=== PATIENT | male | born 1940 | race Caucasian/White ===

== ENCOUNTER 2016-06-20 14:28 | Inpatient (IN) | payer MEDICARE, BC ==
[~2016-06-20] VITALS: Ht 190.5 cm; Wt 92.3 kg
[~2016-06-20 14:28] MED LIST: BETAPACE 120MG120 MG PO; BETAPACE160 MG PO; CARDURA 1MG1 MG PO; ELIQUIS 5MG PO; FLONASEALLERGY NS; TOPROL XL 25MG25 MG PO; TYLENOL 500MG500 MG PO
[2016-06-20 15:01] VITALS: BP 151/82; PULSE 83; TEMP 98.3
[2016-06-20 17:57] VITALS: BP 165/75; PULSE 88; TEMP 97.8
[2016-06-20 18:00] VITALS: BP 168/80
[2016-06-20] MEDS ORDERED: NORVASC 5MG5 MG/TAB PO (18:48)
[2016-06-20] MEDS ORDERED: CORDARONE200 MG/TAB PO (18:48)
[2016-06-20 22:58] VITALS: BP 155/80; PULSE 84; TEMP 97.8
[2016-06-21] VITALS (7 sets, daily range): BP systolic 133–186; BP diastolic 67–92; PULSE 78–96; TEMP 97–98.4
[2016-06-22 01:26] VITALS: BP 145/78; PULSE 69; TEMP 96.9
[2016-06-22 05:33] VITALS: BP 151/86; PULSE 71; TEMP 97
== END 2016-06-22 12:54 | disposition home or self-care (01) | DRG 156 ==
LOC: MEDICAL 14:28 → SPACE 14:39 → SURG 14:46
DX: J38.02 Paralysis of vocal cords and larynx, bilateral (principal); R13.10 Dysphagia, unspecified
CPT/HCPCS: J0295; J1100; J7120

== ENCOUNTER 2016-06-25 13:44 | Inpatient (IN) | payer MEDICARE, BC ==
[~2016-06-25] VITALS: Ht 190.5 cm; Wt 90.5 kg
[~2016-06-25 13:44] MED LIST changes: +CORDARONE200 MG/TAB PO; +NORVASC 5MG5 MG/TAB PO
[2016-06-25 14:00] VITALS: BP 189/89; PULSE 86; TEMP 98.2
[2016-06-25 14:36] VITALS: BP 189/89; PULSE 86; TEMP 98.2
[2016-06-25] MEDS ORDERED: COZAAR 25MG25 MG/TAB PO (15:01)
[2016-06-25 17:24] VITALS: BP 190/97; PULSE 91; TEMP 98.2
[2016-06-25 21:34] VITALS: BP 160/87; PULSE 91; TEMP 98.2
[2016-06-26 02:41] VITALS: BP 126/77; PULSE 90; TEMP 98.5
[2016-06-26 04:50] VITALS: BP 138/80; PULSE 92; TEMP 98.5
[2016-06-26 09:36] VITALS: BP 164/83; PULSE 85; TEMP 97.7
[2016-06-26 13:58] VITALS: BP 151/80; PULSE 82; TEMP 98.7
[2016-06-26 18:08] VITALS: BP 172/91; PULSE 91; TEMP 97.6
[2016-06-26 21:01] VITALS: BP 152/84; PULSE 87; TEMP 97.2
[2016-06-27 02:34] VITALS: BP 128/72; PULSE 86; TEMP 97.2
[2016-06-27 04:46] VITALS: BP 126/75; PULSE 83; TEMP 98.3
[2016-06-27 09:49] VITALS: BP 160/76; PULSE 87; TEMP 96.9
== END 2016-06-27 15:05 | disposition home or self-care (01) | DRG 155 ==
LOC: SURG 13:44
DX: J38.02 Paralysis of vocal cords and larynx, bilateral (principal); B37.0 Candidal stomatitis; I10 Essential (primary) hypertension; I48.91 Unspecified atrial fibrillation; G14 Postpolio syndrome; T40.605A Adverse effect of unspecified narcotics, initial encounter
CPT/HCPCS: J7120

== ENCOUNTER 2017-04-30 14:42 | Emergency (ER) | payer MEDICARE, BC ==
[~2017-04-30] VITALS: Ht 190.5 cm; Wt 94.0 kg
[~2017-04-30 14:42] MED LIST changes: +COZAAR 25MG25 MG/TAB PO
[2017-04-30 14:47] VITALS: TEMP 98
[2017-04-30] MEDS ORDERED: HCTZ 25MG TAB25 MG PO (15:03)
[2017-04-30 15:55] LABS: BASO % 0.4 % (0.0-2.0); EOS # 0.1 (0.0-0.7); EOS % 1.3 % (0-4.0); GRAN # 6.1 (1.4-6.5); GRAN % 66.4 % (42.2-75.2); HEMATOCRIT 43.9 % (42.0-52.0); HEMOGLOBIN 14.8 g/dl (13.5-18.0); LYMPH # 2.1 (1.2-3.4); LYMPH % 23.2 % (20.0-51.0); MEAN CELL VOLUME 87 fl (80.0-100.0); MEAN CORPUSCULAR HEMOGLOBIN 29 pg (27.0-31.0); MEAN CORPUSCULAR HGB CONC 34 g/dl (33.0-37.0); MEAN PLATELET VOLUME 9.8 fl (7.4-10.4); MONO # 0.8 (0.1-0.6); MONO % 8.5 % (1.7-9.3); PLATELET COUNT 266 K/mm3 (130-400); RED BLOOD COUNT 5.04 M/mm3 (4.20-5.60); WHITE BLOOD COUNT 9.1 K/mm3 (4.8-10.8)
[2017-04-30] MEDS ORDERED: TOVIAZ4 MG PO (15:58)
[2017-04-30 16:12] LABS: ADJUSTED CALCIUM 10.3 mg/dL (8.4-10.2); ALANINE AMINOTRANSFERASE 26 U/L (21-72); ALBUMIN 3.6 gm/dL (3.5-5.0); ALKALINE PHOSPHATASE 54 U/L (50-136); ANION GAP 8 mmol/L (7-16); BILIRUBIN,TOTAL 0.3 mg/dL (0.0-1.0); BLOOD UREA NITROGEN 17 mg/dL (9-20); CARBON DIOXIDE 29 mmol/L (22-30); CHLORIDE 100 mmol/L (98-107); CREATININE, serum 0.92 mg/dL (0.66-1.25); GLUCOSE 96 mg/dL (74-106); POTASSIUM 3.8 mmol/L (3.4-5.0); SODIUM 137 mmol/L (137-145); TOTAL PROTEIN 6.2 gm/dL (6.4-8.2)
[2017-04-30 16:19] LABS: C-REACTIVE PROTEIN < 0.5 mg/dL (0.0-0.9)
[2017-04-30 16:23] LABS: TROPONIN-I < 0.012 ng/mL (0.000-0.034)
[2017-04-30] MEDS ORDERED: NORVASC 5MG5 MG/TAB PO (17:49)
[2017-04-30 17:57] VITALS: BP 160/96; PULSE 72
== END 2017-04-30 17:58 | disposition home or self-care (01) ==
LOC: COL.ER 14:42
PROVIDERS: Emergency Medicine
DX: I10 Essential (primary) hypertension (principal); I48.91 Unspecified atrial fibrillation

== ENCOUNTER → 2018-02-11 | Outpatient (CLI) | payer MEDICARE, BC ==
[~2018-02-11] MED LIST changes: +HCTZ 25MG TAB25 MG PO; +TOVIAZ4 MG PO
== END ==
LOC: COL.RAD 11:00
DX: N28.1 Cyst of kidney, acquired (principal); Z90.49 Acquired absence of other specified parts of digestive tract
CPT/HCPCS: Q9967

== ENCOUNTER 2021-11-12 08:24 | Emergency (ER) | payer MEDICARE, BC ==
[~2021-11-12] VITALS: Ht 190.5 cm; Wt 95.0 kg
[2021-11-12 08:30] VITALS: BP 159/74; TEMP 97.3
[2021-11-12] MEDS ORDERED: ROBAXIN 75750 MG/TAB PO (09:00)
[2021-11-12] MEDS ORDERED: LIDODERM 5% PATC1 EA TP (09:00)
[2021-11-12 09:10] VITALS: PULSE 75
== END 2021-11-12 09:10 | disposition home or self-care (01) ==
LOC: COL.ER 08:24
DX: M62.830 Muscle spasm of back (principal); Z87.891 Personal history of nicotine dependence; Z79.01 Long term (current) use of anticoagulants

== ENCOUNTER 2023-03-31 09:54 | Day surgery (SDC) | payer MEDICARE, BC ==
[2023-03-31] VITALS (13 sets, daily range): BP systolic 123–148; BP diastolic 61–90; PULSE 59–100; TEMP 97.8
[~2023-03-31] VITALS: Ht 188 cm; Wt 95.2 kg
[~2023-03-31 09:54] MED LIST changes: +ALTACE 5MG5 MG PO; +ASPIRIN 32325 MG/TAB PO; +LIDODERM 5% PATC1 EA TP; +ROBAXIN 75750 MG/TAB PO; +ZIAC 2.5/6.25MG1 TAB
[2023-03-31 10:30] LABS: HEMATOCRIT 38.2 % (42.0-52.0); MEAN CELL VOLUME 80 fl (80.0-100.0); MEAN CORPUSCULAR HEMOGLOBIN 25 pg (27-31); MEAN CORPUSCULAR HGB CONC 31 g/dl (33.0-37.0); MEAN PLATELET VOLUME 9.6 fl (7.4-10.4); PLATELET COUNT 335 K/mm3 (130-400); REDCELL DISTRIBUTION WIDTH-CV 13.9 % (11.5-14.5)
[2023-03-31] MEDS ORDERED: ELIQUIS 5MG PO (10:43)
[2023-03-31 10:46] LABS: CALCIUM 9.6 mg/dL (8.4-10.2); CREATININE, serum 0.78 mg/dL (0.72-1.25); POTASSIUM 4.4 mmol/L (3.5-4.5)
[2023-03-31] MEDS ORDERED: TYLENOL 500MG500 MG PO (10:47)
[2023-03-31 10:48] LABS: INR 1.3 (0.8-3.0); PROTHROMBIN TIME 14.1 SECONDS (9.7-12.8)
[2023-03-31] MEDS ORDERED: BIOFREEZE 0.2%-1 GE1 TOP (10:48)
[2023-03-31] MEDS ORDERED: BLUE-EMU LIDOC1 EACH TP (10:48)
[2023-03-31 10:50] LABS: PARTIAL THROMBOPLASTIN TIME 30.9 SECONDS (26.0-37.0)
--- NOTE | 2023-03-31 10:56 | NUR ---
Initial visit; Patient and his thanked Car Rental Deliverer for offering prayer for Prem prior to his 'Heart Catherization.' Car Rental Deliverer states that it is always her blessing also to pray with patients and their families.
--- NOTE | 2023-03-31 12:51 | NUR ---
Refer to [facility] Report for procedural sedation and notes
--- NOTE | 2023-03-31 16:15 | NUR ---
Pt reports having tenderness on right forearm. coreroom foundry laborer staff called to check on pt. No bruising noticed, but pt still reporting tenderness. Akila De La Torre nurse aware. Orders to firmly karen wrap forearm, apply ice and give 650 of tylenol given. Pts forearm has been firmly wrapped with an karen wrap and ice applied. Currently waiting for tylenol order. 8 mls of air has been released from the radial band, no bleeding from site present.
--- NOTE | 2023-03-31 16:46 | NUR ---
Right forearm still wrapped firmly with an Julio wrap, ice in place, tylenol has been given. Pt still reports tenderness.
--- NOTE | 2023-03-31 17:15 | NUR ---
Right forearm still wrapped with a karen wrap, ice still in place. Pt reports that tenderness is better and does not hurt as much.
--- NOTE | 2023-03-31 18:01 | NUR ---
Pts forearm still wrapped with an RADHA wrap. Pt removed Ice. Pt reported that he no longer has tenderness in his forearm.
--- NOTE | 2023-03-31 19:15 | NUR ---
Pt ambulated to EU9 accompanied by . Pt is scheduled for a [facility]. IV started, labs drawn. EKG done. Meds and HX were reviewed with the pt. Consent for the LHC signed. Pt was taken to car barn laborer for LHC. Came back to EU9 post procedure. Pt was given something to drink and ordered food. Pt was bedrest for 2 hrs. At the start of hr 3 air was released from the radial band. Site clean, dry, and intact. Pt reported tenderness to right forearm. slabbing machine operator notified, car barn laborer staff came to assess the forearm. No bruising, no heat, only tenderness. Dr. rosana Wilburn nurse notified. Orders for a firmly wrapped karen wrap, ice pack, and tylenol given. Pt later reported after karen wrap and ice were applied and tylenol given that the tenderness was better. 2 mls of air were then released about every 15 minutes. Once all air was released no bleeding occured. A band-aid was applied and the deflated radial band was reapplied as a remind to limit extremity use. Discharge education and information given to the pt. Pt exited the unit by wheelchair to wifes car.
== END 2023-03-31 18:45 | disposition home or self-care (01) ==
LOC: COL.CAR 09:54
PROVIDERS: Internal Medicine Cardiovascular Disease
DX: R94.39 Abnormal result of other cardiovascular function study (principal); I48.0 Paroxysmal atrial fibrillation; I44.1 Atrioventricular block, second degree; I10 Essential (primary) hypertension; E78.00 Pure hypercholesterolemia, unspecified; I49.5 Sick sinus syndrome; E78.2 Mixed hyperlipidemia; Z87.891 Personal history of nicotine dependence
CPT/HCPCS: J1644; J2250; J3010; Q9967

== ENCOUNTER 2024-02-19 10:04 | Inpatient (IN) | payer MEDICARE, BC ==
[2024-02-19] VITALS (7 sets, daily range): BP systolic 142–182; BP diastolic 64–97; PULSE 85–103; TEMP 97.6–98
[~2024-02-19] VITALS: Ht 188 cm; Wt 93.1 kg
[~2024-02-19 10:04] MED LIST changes: +BIOFREEZE 0.2%-1 GE1 TOP; +BLUE-EMU LIDOC1 EACH TP
[2024-02-19] MEDS ORDERED: dexAMETHasone 10 MG/ML VIAL IV ONE (10:45)
[2024-02-19] MEDS ORDERED: NS 1,000 ML IV ONE ×2 (10:45)
[2024-02-19 10:56] LABS: HEMATOCRIT 41.6 % (42.0-52.0); HEMOGLOBIN 13.7 g/dl (13.5-18.0); MEAN CELL VOLUME 82 fl (80.0-100.0); MEAN CORPUSCULAR HEMOGLOBIN 27 pg (27-31); MEAN CORPUSCULAR HGB CONC 33 g/dl (33.0-37.0); MEAN PLATELET VOLUME 9.8 fl (7.4-10.4); PLATELET COUNT 411 K/mm3 (130-400); RED BLOOD COUNT 5.06 M/mm3 (4.20-5.60); REDCELL DISTRIBUTION WIDTH-CV 16.5 % (11.5-14.5)
[2024-02-19 11:15] LABS: ALBUMIN 2.9 g/dL (3.4-4.8); BILIRUBIN,TOTAL 0.7 mg/dL (0.2-1.2); C-REACTIVE PROTEIN 21.17 mg/dL (0.00-0.50); CALCIUM 10.2 mg/dL (8.4-10.2); CREATININE, serum 0.79 mg/dL (0.72-1.25); POTASSIUM 4.1 mEq/L (3.5-4.5); TOTAL PROTEIN 7.1 g/dl (6.2-8.1)
[2024-02-19] MEDS ORDERED: cefTRIAXone 1 G in Water For Injection,Sterile 10 ML IV ONE (12:45)
[2024-02-19 12:55] LABS: LYMPHOCYTE 3 % (20.0-51.0)
[2024-02-19 12:56] LABS: ANISOCYTOSIS 1+; BAND 7 % (0-10); HYPOCHROMIA 1+; NEUTROPHILS 83 % (42.0-75.2)
[2024-02-19 12:57] LABS: OVALOCYTES 1+; TEAR DROP CELLS 1+
[2024-02-19] MEDS ORDERED: *Potassium Replacement Protocol MC SCH (14:00)
--- NOTE | 2024-02-19 14:30 | NUR ---
Patient up to medical floor from ED. Patient awake, alert and oriented. C/O shortness of breath on exertion, nasal cannula in place. Ambulates in room, steady on feet. C/O cough, worsening with speaking or movement. at bedside. Bed in lowest position with call light within reach.
[2024-02-19] MEDS ORDERED: Albuterol/Ipratropium 3 MG-0.5 MG/3 ML Neb Soln IH SCH (15:00)
[2024-02-19] MEDS ORDERED: ZIAC 2.5/6.25MG1 TAB PO (16:01)
[2024-02-19] MEDS ORDERED: Umeclidinium/Vilanterol 62.5-25 MCG INHALATION/INHALER IH SCH (17:00)
[2024-02-19] MEDS ORDERED: cefTRIAXone 1 G in Water For Injection,Sterile 10 ML IV SCH (17:00)
[2024-02-19] MEDS ORDERED: Doxycycline Hyclate 100 MG in NS 150 ML IV SCH (18:00)
[2024-02-19] MEDS ORDERED: Benzonatate 100 MG CAP PO SCH (18:00)
--- NOTE | 2024-02-19 20:00 | NUR ---
Initial shift asserssment done- denies pain tonight- states its been along time since he has been pain free.o2 at 2L/nc, denies SOB, Tele on NSR, Droplet/contact precautions, bed alarm on- pt aware but usually does not call-just starts to get up,,,understands to call.
[2024-02-19] MEDS ORDERED: Apixaban 5 MG TABLET PO SCH (21:00)
[2024-02-19] MEDS ORDERED: Doxazosin 1 MG TAB PO SCH (21:00)
[2024-02-20] VITALS (12 sets, daily range): BP systolic 145–165; BP diastolic 66–75; PULSE 70–90; TEMP 97.4–98.3
--- NOTE | 2024-02-20 | NUR ---
Received bedside shift report from RN. Scheduled meds administered per AUG. Shift assessment complete. Noted coarse lung sounds at Rt lower lobe and diminished lung sounds across YAZAN bases. Pt. is having periods of excessive coughing w/ white sputum produced. No further outstanding findings. Pt. denies pain at this time. Assisted pt to restroom. Gait is steady w/ standby assist. Pt. also performed oral hygiene independently at this time. Pt. returned to bed w/ call light in reach and fall precautions in place.
[2024-02-20] MEDS ORDERED: Acetaminophen 500 MG TAB PO PRN (01:00)
--- NOTE | 2024-02-20 01:00 | NUR ---
PCT reported pt was requesting Tylenol. PT. c/o 10/22 headache. Hospitalist, MD Leann, notified. New orders received.
--- NOTE | 2024-02-20 06:07 | NUR ---
Pt's headache subsided w/ tylenol. Cough persists- still producing white sputum. Pt. remains on 2L O2/min via nasal cannula. Otherwise, pt. had uneventful evening w/out complaints or requests. Pt. resting in bed w/ snack this morning. Call light in reach and fall precautions in place.
[2024-02-20 07:01] LABS: BASO % 0.1 % (0.0-2.0); HEMATOCRIT 37.8 % (42.0-52.0); HEMOGLOBIN 12.5 g/dl (13.5-18.0); LYMPH # 0.7 K/mm3 (1.2-3.4); LYMPH % 7.2 % (20.0-51.0); MEAN CELL VOLUME 82 fl (80.0-100.0); MEAN CORPUSCULAR HEMOGLOBIN 27 pg (27-31); MEAN CORPUSCULAR HGB CONC 33 g/dl (33.0-37.0); MEAN PLATELET VOLUME 10.2 fl (7.4-10.4); MONO % 10.4 % (1.7-9.3); PLATELET COUNT 371 K/mm3 (130-400); RED BLOOD COUNT 4.61 M/mm3 (4.20-5.60); REDCELL DISTRIBUTION WIDTH-CV 16.3 % (11.5-14.5)
--- NOTE | 2024-02-20 07:10 | NUR ---
Pt laying in bed. No needs at this time. Bed alarm on. Call light in reach.
--- NOTE | 2024-02-20 07:20 | NUR ---
Pt is A&Ox4. Hearing aids in place. VSS. S1S2 on tele. Clear lungs upper lobes, diminished lower lobes. Deep breathing and coughin. Sputum present. 2L via NC. ABD round, soft, non-tender with audible bowel sounds. Palpable pulses in all extremities with good strength. INT in L forearm patent, no issues. No further needs. Call light in reach and bed alarm on.
[2024-02-20 07:27] LABS: ALBUMIN 2.3 g/dL (3.4-4.8); CALCIUM 9.8 mg/dL (8.4-10.2); CREATININE, serum 0.74 mg/dL (0.72-1.25); PHOSPHOROUS 2.1 mg/dL (2.3-4.7)
[2024-02-20] MEDS ORDERED: dexAMETHasone 4 MG TAB PO SCH (09:00)
[2024-02-20] MEDS ORDERED: HYDROCHLOROTHIAZIDE PO SCH (09:15)
[2024-02-20] MEDS ORDERED: BISOPROLOL PO SCH (09:15)
[2024-02-20] MEDS ORDERED: Potassium Phoshate 10 MM in NS 250 ML IV ONE (09:15)
--- NOTE | 2024-02-20 10:31 | NUR ---
SW called patient to complete intake. Patient unable to hear over the phone questions asked. SW called spouse Krystyna James [phone] to complete intake. Krystyna provides she and spouse live in [facility]. Spouse provides patient is independent with ADLs, does not utilize DME nor home health services at this time. PCP is Dr. Ferris, and pharmacy is [facility]. DPOA/HC is son Apolinar James, and plan is for patient to return to home upon discharge. SW will continue to follow. Discharge plan: home ([place], [place])
--- NOTE | 2024-02-20 14:15 | NUR ---
Data: Patient and accepted spiritual care visit offered during Cancer Researcher rounds. Patient is Zoroastrianism; is [employer] Life review. Assessment: Patient is positive about the care received. Patient desired prayer. Hopes to discharge tomorrow. Plan of Care: Cancer Researcher provided supportive listening; prayer; and a bible. Chaplains will remain available as needed/requested while Patient is admitted to this hospital.
--- NOTE | 2024-02-20 20:15 | NUR ---
Scheduled meds administered per AUG. Shift assessment complete. Respirations are shallow. Lung sounds are course across YAZAN upper lobes and diminished at bases. Pt. is on O2 at 2L/min at this time. During assessment pt. c/o not being able to take a full breath. HOB raised and O2 saturation measured at 93%. Pt. reports relief w/ HOB elevation. Bowel sounds are hypoactive and pt. reports he has not had BM since being admitted. However, pt endorses passing flatus. No further outstanding findings at this time. Assisted pt to restroom. Gait is steady w/ stand by assist. Call light in reach and fall precautions in place.
[2024-02-21] VITALS (8 sets, daily range): BP systolic 133–162; BP diastolic 62–68; PULSE 68–88; TEMP 97.7–98.6
[2024-02-21] MEDS ORDERED: Cefdinir 300 MG CAP PO SCH
--- NOTE | 2024-02-21 05:30 | NUR ---
Pt. c/o pain when flushing IV. IV appears to be leaking under dressing. IV. discontinued from Lt forearm w/ catheter intact. New IV inserted to Lt anticubital. No signs of infiltration or phlebitis. Pt. reports no pain w/ flushing or abx infusion.
--- NOTE | 2024-02-21 06:39 | NUR ---
Pt. resting in bed w/ call light in reach and fall precautions in place. Denies request or complaints at this time.
[2024-02-21 06:48] LABS: BASO % 0.1 % (0.0-2.0); GRAN # 10.8 K/mm3 (1.4-6.5); GRAN % 83.2 % (42.2-75.2); HEMATOCRIT 37.2 % (42.0-52.0); HEMOGLOBIN 12.4 g/dl (13.5-18.0); LYMPH % 7.6 % (20.0-51.0); MEAN CELL VOLUME 81 fl (80.0-100.0); MEAN CORPUSCULAR HEMOGLOBIN 27 pg (27-31); MEAN CORPUSCULAR HGB CONC 33 g/dl (33.0-37.0); MEAN PLATELET VOLUME 9.9 fl (7.4-10.4); MONO # 1.2 K/mm3 (0.1-0.6); MONO % 8.8 % (1.7-9.3); PLATELET COUNT 423 K/mm3 (130-400); RED BLOOD COUNT 4.58 M/mm3 (4.20-5.60); REDCELL DISTRIBUTION WIDTH-CV 16.2 % (11.5-14.5)
[2024-02-21 07:04] LABS: ALBUMIN 2.3 g/dL (3.4-4.8); CALCIUM 9.7 mg/dL (8.4-10.2); CREATININE, serum 0.68 mg/dL (0.72-1.25); MAGNESIUM 1.9 mg/dL (1.6-2.6); PHOSPHOROUS 1.9 mg/dL (2.3-4.7); POTASSIUM 4.1 mEq/L (3.5-4.5)
--- NOTE | 2024-02-21 10:00 | NUR ---
PATIENT SITTING UP IN CHAIR. ALERT AND ORIENTED. SHIFT ASSESSMENT COMPLETE. AUDIBLE EXPIRATORY WHEEZES NOTED. PATIENT STABLE ON RA. DENIES PAIN OR DISCOMFORT. ALL NEEDS MET DURING THIS VISIT. CALL LIGHT WITHIN REACH.
[2024-02-21] MEDS ORDERED: DECADRON6 MG PO (13:14)
[2024-02-21] MEDS ORDERED: TESSALON P100 MG/CAP PO (13:14)
[2024-02-21] MEDS ORDERED: OMNICEF 300MG300 MG PO (13:15)
[2024-02-21] MEDS ORDERED: DOXYCYCLINE 10100 MG PO (13:15)
[2024-02-21] MEDS ORDERED: TYLENOL 8 HR PO (13:16)
[2024-02-21] MEDS ORDERED: Home Doxycycline Mono 100 MG #2 CAP/PACK PO ONE (14:15)
--- NOTE | 2024-02-21 14:15 | NUR ---
THIS RN PROVIDED PATIENT WITH DISCHARGE EDUCATION AND INSTRUCTIONS. ALL QUESTIONS ANSWERED. IV TO LFA DISCONTINUED. MINIMAL DRAINAGE NOTED. CALLED PHARMACY FOR HOME PACK OF MEDICATIONS PATIENTS ARE NOT LOCAL.
[2024-02-21] MEDS ORDERED: BENZONATATE 100 MG PO ONE (14:30)
[2024-02-21] MEDS ORDERED: [UNRECOGNIZED DRUG - OTHER] PO ONE (14:30)
--- NOTE | 2024-02-21 14:38 | NUR ---
PATIENT ESCORTED OFF UNIT AT APPROX 1435 VIA WC BY PCT. ALL BELONGINGS WITH PATIENT AND .
== END 2024-02-21 14:30 | disposition home or self-care (01) | DRG 177 ==
LOC: COL.ER 10:04 → MEDICAL 12:34
PROVIDERS: Emergency Medicine; ADMIT Internal Medicine
DX: U07.1 COVID-19 (principal); J12.82 Pneumonia due to coronavirus disease 2019; J96.01 Acute respiratory failure with hypoxia; I10 Essential (primary) hypertension; I08.3 Combined rheumatic disorders of mitral, aortic and tricuspid valves; I48.0 Paroxysmal atrial fibrillation; G47.33 Obstructive sleep apnea (adult) (pediatric); N40.0 Benign prostatic hyperplasia without lower urinary tract symptoms; I44.0 Atrioventricular block, first degree; Z90.89 Acquired absence of other organs; Z95.818 Presence of other cardiac implants and grafts; Z90.49 Acquired absence of other specified parts of digestive tract; Z87.891 Personal history of nicotine dependence; Z88.1 Allergy status to other antibiotic agents; Z88.2 Allergy status to sulfonamides; Z88.8 Allergy status to other drugs, medicaments and biological substances; Z79.01 Long term (current) use of anticoagulants; Z79.82 Long term (current) use of aspirin; Z79.899 Other long term (current) drug therapy
CPT/HCPCS: J0696; J1100; J7030; J7050; J8540

== ENCOUNTER 2024-02-23 07:21 | Emergency (ER) | payer MEDICARE, BC ==
[~2024-02-23] VITALS: Ht 188 cm; Wt 92.7 kg
[~2024-02-23 07:21] MED LIST changes: +DECADRON6 MG PO; +DOXYCYCLINE 10100 MG PO; +OMNICEF 300MG300 MG PO; +TESSALON P100 MG/CAP PO; +TYLENOL 8 HR PO; +ZIAC 2.5/6.25MG1 TAB PO
[2024-02-23 07:34] VITALS: BP 170/77; TEMP 97.7
[2024-02-23] MEDS ORDERED: Morphine 10 MG/ML VIAL IM ONE (08:00)
[2024-02-23] MEDS ORDERED: NORCO 325 MG-51 TAB PO (09:06)
[2024-02-23] MEDS ORDERED: FLEXERIL 1010 MG/TAB PO (09:06)
[2024-02-23 09:40] VITALS: PULSE 70
== END 2024-02-23 09:40 | disposition home or self-care (01) ==
LOC: COL.ER 07:21
DX: M54.16 Radiculopathy, lumbar region (principal)
CPT/HCPCS: J2270; J2360

== ENCOUNTER 2024-03-04 08:39 | Inpatient (IN) | payer MEDICARE, BC ==
[~2024-03-04] VITALS: Ht 188 cm; Wt 90.7 kg
[~2024-03-04 08:39] MED LIST changes: +FLEXERIL 1010 MG/TAB PO; +NORCO 325 MG-51 TAB PO
[2024-04-12] MEDS ORDERED: Gabapentin 100 MG CAP PO SCH (08:45)
[2024-04-12] MEDS ORDERED: Acetaminophen 500 MG TAB PO SCH (08:45)
[2024-04-12] MEDS ORDERED: Celecoxib 200 MG CAP PO SCH (08:45)
[2024-04-13] VITALS (13 sets, daily range): BP systolic 123–172; BP diastolic 55–85; PULSE 46–84; TEMP 97–98.2
[2024-04-13] MEDS ORDERED: LR 1,000 ML IV SCH ×2 (05:00→10:45)
[2024-04-13] MEDS ORDERED: ZIAC 2.5/6.25MG1 TAB PO (07:29)
[2024-04-13] MEDS ORDERED: TYLENOL 500MG500 MG PO (07:29)
[2024-04-13] MEDS ORDERED: NEURONTIN300 MG/CAP PO (07:30)
[2024-04-13] MEDS ORDERED: Ondansetron 4 MG/2 ML VIAL ONE (07:31)
[2024-04-13] MEDS ORDERED: VITAMIN C500 MG PO (07:31)
[2024-04-13] MEDS ORDERED: Glycopyrrolate 0.2 MG/ML 1 ML VIAL ONE (07:31)
[2024-04-13] MEDS ORDERED: dexAMETHasone 10 MG/ML VIAL ONE (07:31)
[2024-04-13] MEDS ORDERED: MASON NATURAL2000 IU PO (07:32)
[2024-04-13] MEDS ORDERED: Lidocaine PF 2% (20 MG/ML) 5 ML VIAL ONE ×2 (07:32→07:33)
--- NOTE | 2024-04-13 07:33 | NUR ---
PATIENT TOOK 1,000MG OF ES TYLENOL AT 0500 THIS. DOSE HELD ON ADMIT FOR ERAS PROTOCOL AND DR. CUEVAS WAS NOTIFIED.
[2024-04-13] MEDS ORDERED: fentaNYL 50 MCG/ML 2 ML VIAL ONE ×2 (07:34→08:59)
[2024-04-13] MEDS ORDERED: Rocuronium 50 MG/5 ML Multi-Dose VIAL ONE ×2 (07:36→08:45)
[2024-04-13] MEDS ORDERED: ALBUMIN IV ONE (07:41)
--- NOTE | 2024-04-13 08:39 | NUR ---
PATIENT WAS ADMITTED TO ROOM 7 AMBULATORY AND WAS ORIENTED TO ROOM. VOICED UNDERSTANDING OF SURGERY AND CONSENT SIGNED. IVF STARTED AND READIED FOR SURGERY.
[2024-04-13] MEDS ORDERED: ePHEDrine 50 MG/ML VIAL ONE (08:48)
[2024-04-13] MEDS ORDERED: hydrALAZINE 20 MG/ML 1 ML VIAL IV PRN (10:00)
[2024-04-13] MEDS ORDERED: Ondansetron 4 MG/2 ML VIAL IV PRN ×2 (10:00→10:45)
[2024-04-13] MEDS ORDERED: HYDROmorphone 1 MG/1 ML SYRINGE [PACU/SDC ONLY] IV PRN (10:00)
[2024-04-13] MEDS ORDERED: fentaNYL 50 MCG/ML 1 ML SYRINGE/VIAL [PACU/SDC ONLY] IV PRN (10:00)
[2024-04-13] MEDS ORDERED: HYDROmorphone 0.5 MG/0.5 ML SYRINGE IV PRN (10:45)
[2024-04-13] MEDS ORDERED: Naloxone 0.4 MG/ML VIAL IV PRN (10:45)
[2024-04-13] MEDS ORDERED: oxyCODONE 5 MG TAB PO PRN (10:45)
[2024-04-13] MEDS ORDERED: Acetaminophen 500 MG TAB PO SCH (11:31)
--- NOTE | 2024-04-13 13:28 | NUR ---
PT TO ROOM 323 PER BED WITH REPORT FROM LILLIAM SMITH @2819.PT IS A/O X4, LUNGS CTA, BOWEL SOUNDS HYPO. 3 LAP SITES WITH BANDAIDS AND TRANSVERSE WITH HYPAFIX. ASYMETRICAL BULGING TO LEFT LATERAL ABDOMEN. DR. CUEVAS NOTIFIED BY LILLIAM SMITH. NO NEW ORDERS AT THIS TIME. VSS. PT HR IRREGULAR. PT HAS HX A-FIB VERIFIED BY PTS . DR CUEVAS WILL ROUND AFTER SURGERY COMPLETE.
[2024-04-13] MEDS ORDERED: Gabapentin 300 MG CAP PO SCH (14:00)
[2024-04-13] MEDS ORDERED: ceFAZolin 2 G in Water For Injection,Sterile 20 ML IV SCH (14:31)
--- NOTE | 2024-04-13 16:56 | NUR ---
URINE CONTINUES TO BE DARK RED. DR CUEVAS AWARE. PT DANGELED TO SOB THIS PM.
--- NOTE | 2024-04-13 19:46 | NUR ---
Patient is laying down in bed, A&Ox4. No distress noted at this time. Patient reports 10/10 abdominal pain. PRN oxycodone 5mg PO given, along with scheduled night time medications. Patient tolerated well. Left hand 18g IV noted to be infusing LR, dressing clean dry and intact. 5 incision sites with bandaids present on abdomen, noted to be a little bloody but intact and dry. Patient educated to call if he needs help, bed lowered and locked, call casanova within reach.
[2024-04-14] VITALS (13 sets, daily range): BP systolic 109–163; BP diastolic 61–78; PULSE 63–80; TEMP 97.4–98.2
--- NOTE | 2024-04-14 05:10 | NUR ---
Patient noted to be sleeping in bed. Patient had increasing back pain overnight. oxycodone PO prn given throughout the night. Patient repositioned and icepack on backside for comfort. Wadsworth urine output charted and dumped. Urinie noted to be blood tinged. Morning medications given, patient tolerated well. Bed lowered and locked, call casanova within reach.
[2024-04-14 06:12] LABS: BASO % 0.1 % (0.0-2.0); GRAN % 87.6 % (42.2-75.2); HEMOGLOBIN 11.7 g/dl (13.5-18.0); LYMPH % 5.6 % (20.0-51.0); MEAN CELL VOLUME 85 fl (80.0-100.0); MEAN CORPUSCULAR HEMOGLOBIN 28 pg (27-31); MEAN CORPUSCULAR HGB CONC 33 g/dl (33.0-37.0); MONO # 1.1 K/mm3 (0.1-0.6); MONO % 6.3 % (1.7-9.3); PLATELET COUNT 266 K/mm3 (130-400); REDCELL DISTRIBUTION WIDTH-CV 14.6 % (11.5-14.5)
[2024-04-14 06:18] LABS: HEMATOCRIT 35.6 % (42.0-52.0)
[2024-04-14 06:25] LABS: CALCIUM 9.4 mg/dL (8.4-10.2); CREATININE, serum 0.78 mg/dL (0.72-1.25); POTASSIUM 4.4 mEq/L (3.5-4.5)
--- NOTE | 2024-04-14 08:51 | NUR ---
PT RESTING AFTER BREAKFAST AND WORKING WITH THERAPY. TOLERATING GENERAL DIET WELL. INCISIONS CDI WITH BANDAIDS OVER LAP SITES AND GAUZE OVER LOW TRANSVERSE INCISION.
[2024-04-14] MEDS ORDERED: BISOPROLOL PO SCH (09:00)
[2024-04-14] MEDS ORDERED: HYDROCHLOROTHIAZIDE PO SCH (09:00)
--- NOTE | 2024-04-14 09:19 | NUR ---
AGREE WITH STUDENTS ASSESSMENTS.
--- NOTE | 2024-04-14 09:48 | NUR ---
Social work student met with patient this morning. Pt lives in [place] with his , Krystyna (p# [phone]). PCP is Dr. Ferris. Pt uses two pharmacys, [facility] [place] and [facility] in [place]. Pt has a living will on file but when asked about a DPOA-HC he said "no" and was not interested in completeing one at this time. Pt gets around independantly with ADLS and uses a CPAP for DME. Discharge plan: Home.
--- NOTE | 2024-04-14 10:16 | NUR ---
Initial visit; Patient and Job Placement Specialist had a nice visit. sriram mentioned that his surgery for his colon is doing well though he has other health issues that he is trying to overcome. Job Placement Specialist wished him well and will definitely keep him in her prayers.
--- NOTE | 2024-04-14 12:10 | NUR ---
Pt in bed visiting with family members. VSS with abdominal discomfort rated 4/10. Denies tylenol at this time. No questions or concerns. Report handed off to primary nurse.
--- NOTE | 2024-04-14 21:04 | NUR ---
Patient is laying down in bed, A&Ox4. No distress noted at this time. Patient reports 7/10 abdominal pain. PRN oxycodone 5mg PO given, along with scheduled night time medications. Patient tolerated well. Left hand 18g IV noted to be infusing LR, dressing clean dry and intact. 5 incision sites with bandaids present on abdomen, noted to be a little bloody but intact and dry. Indwelling mattson present, output is noted to be yellow and clear. Patient educated to call if he needs help, bed lowered and locked, call casanova within reach.
--- NOTE | 2024-04-14 21:10 | NUR ---
Patient noted to have order placed to have mattson removed POD #1. Per report mattson cath was a traumatic insertion by Dr Marinelli with quite a bit of bloody output. Mattson cath remains in place with clear yellow urine. Was instructed to leave in place during report.
[2024-04-15 04:00] VITALS: BP 160/80; PULSE 62; TEMP 97.6
[2024-04-15 04:33] VITALS: BP_SYST 160
--- NOTE | 2024-04-15 05:09 | NUR ---
No acute events overnight. Patient c/o abdominal pain throughout the night. PRN oxycodone given throughout the night. Patient tolerating treatment. Indwelling mattson catheter present and output noted to be clear and yellow. Patient tolerating PO fluids, IVF stopped and IV INT'd. Morning medications given. Bed lowered and locked, call casanova within reach.
[2024-04-15 07:30] VITALS: BP 180/93; PULSE 71; TEMP 97.9
[2024-04-15 09:00] VITALS: BP_SYST 160
[2024-04-15] MEDS ORDERED: Apixaban 5 MG TABLET PO SCH (09:00)
[2024-04-15] MEDS ORDERED: ROXICODONE 55 MG/TAB PO (09:08)
[2024-04-15 11:40] VITALS: BP 158/83; PULSE 67; TEMP 97.9
--- NOTE | 2024-04-15 11:46 | NUR ---
Pt in bed resting. VSS and pain rated 2/10. Pt waiting on lunch and no questions or concerns at this time. Report handed off to primary nurse, Jakub.
--- NOTE | 2024-04-15 12:48 | NUR ---
DISCHARGE INSTRUCTIONS REVIEWED WITH PT AND FAMILY. QUESTIONS SOLICITED AND ANSWERED. PT LEFT UNIT PER WHEEL CHAIR WITH STAFF.
== END 2024-04-15 12:50 | disposition home or self-care (01) | DRG 331 ==
LOC: INPTSU 04-13 06:06 → SURG 04-13 08:00
PROVIDERS: ADMIT Surgery
PROC: 8E0W4CZ Robotic Assisted Procedure of Trunk Region, Percutaneous Endoscopic Approach (ICD-10-PCS; 2024-04-13)
PROC: 0DTF4ZZ Resection of Right Large Intestine, Percutaneous Endoscopic Approach (ICD-10-PCS; principal; 2024-04-13 08:00)
DX: C18.2 Malignant neoplasm of ascending colon (principal); D50.9 Iron deficiency anemia, unspecified; I48.91 Unspecified atrial fibrillation; Z79.01 Long term (current) use of anticoagulants
CPT/HCPCS: A4314; A9284; J0688; J1100; J1171; J1650; J2405; J2598; J2704; J2795; J3010; J7120; P9047